=== PATIENT | female | born 1985 | race Caucasian/White ===

== ENCOUNTER 2019-10-27 20:37 | Emergency (ER) | payer OTHER ==
[2019-10-27 21:13] LABS: BASOPHILS % (AUTO) 0.4 %; EOSINOPHILS # (AUTO) 0.1 10^3/uL (0.0-0.7); EOSINOPHILS % (AUTO) 1.4 %; LYMPHOCYTES # (AUTO) 3.5 10^3/uL (1.5-3.5); LYMPHOCYTES % (AUTO) 38.6 %; MEAN CORPUSCULAR HEMOGLOBIN 30.1 pg (27.0-31.0); MEAN CORPUSCULAR HGB CONC 33.7 g/dL (32.0-36.0); MEAN CORPUSCULAR VOLUME 89.4 fL (81.0-99.0); MEAN PLATELET VOLUME 9.8 fL (7.9-10.8); MONOCYTES # (AUTO) 0.7 10^3/uL (0.0-1.0); MONOCYTES % (AUTO) 7.3 %; NEUTROPHILS # (AUTO) 4.8 10^3/uL (1.5-6.6); NEUTROPHILS % (AUTO) 52.1 %; PLT - PLATELET COUNT 295 10^3/uL (130-450); RED BLOOD COUNT 4.32 10^6/uL (4.20-5.40); RED CELL DISTRIBUTION WIDTH 12.6 % (12.0-15.0); WHITE BLOOD COUNT 9.2 x10^3/uL (4.8-10.8)
[2019-10-27 21:22] LABS: ALBUMIN 4.4 g/dL (3.2-5.5); ALBUMIN/GLOBULIN RATIO 1.4 (1.0-2.2); BILIRUBIN,TOTAL 0.6 mg/dL (0.2-1.0); CALCIUM 9.7 mg/dL (8.5-10.3); CREATININE 0.7 mg/dL (0.4-1.0); TOTAL PROTEIN 7.5 g/dL (6.7-8.2)
[2019-10-27 21:26] LABS: BILIRUBIN,URINE NEGATIVE (NEGATIVE); GLUCOSE, URINE (UA) NEGATIVE (NEGATIVE); KETONES,URINE (UA) NEGATIVE (NEGATIVE); LEUKOCYTE ESTERASE, URINE NEGATIVE (NEGATIVE); NITRITE,URINE NEGATIVE (NEGATIVE); OCCULT BLOOD,URINE NEGATIVE (NEGATIVE); PROTEIN,URINE NEGATIVE (NEGATIVE); UROBILINOGEN,URINE 0.2 (NORMAL) E.U./dL (NORMAL)
[2019-10-27 21:28] LABS: CLARITY,URINE N (CLEAR); HCG UR QUAL NEGATIVE
--- NOTE | 2019-10-27 21:53 | ED Physician Documentation ---
PD HPI CHEST PAIN - Stated complaint Stated Complaint: CP/SOA - Chief complaint Chief Complaint: Cardiac - History obtained from History obtained from: Patient, Family - History of Present Illness Timing - onset: How many months ago (3) Timing - onset during: Rest Timing - duration: Months (3) Timing - details: Gradual onset, Still present, Waxing and waning Quality: Sharp, Pain Location: Right chest Radiation: Neck Improved by: Rest, Other (some improvement with ibuprofen) Worsened by: Exertion, Inspiration, Movement, Palpation, Position Associated symptoms: Shortness of air, Feeling faint / dizzy. No: Diaphoresis, Nausea, General Weakness, Palpitations, Cough Similar symptoms before: Has not had sx before Recently seen: Clinic - Additional information Additional information: 34-year-old female who has been dealing with some pain in her neck and upper back since a miscarriage in July has developed some pain in her anterior chest that is made it difficult for her to breathe and she is having some dyspnea on exertion. She and her are trying to get and she has recently ovulated she thinks 2 days ago and she is concerned that any medications might cause a problem.The patient has had physical therapy and massage and acupuncture for her neck and back pain and all of this has been without significant improvement. She is here in the emergency department tonight because of concerns with her chest pain. She does indicate that she did have some sobbing when she had her miscarriage and that she has had this pain in her chest for some time as well not as bad as it as it has been over the past week. She has had a chest x-ray done at an urgent care and she has been in to see her primary care doctor as well. She found some relief with some Flexeril.She did not find relief with Naprosyn she did find some relief with ibuprofen. Review of Systems Constitutional: denies: Fever, Chills, Myalgias Eyes: denies: Decreased vision Ears: denies: Ear pain Nose: denies: Rhinorrhea / runny nose, Congestion Throat: denies: Sore throat Cardiac: reports: Chest pain / pressure. denies: Palpitations, Pedal edema, Calf pain Respiratory: reports: Dyspnea. denies: Cough, Hemoptysis, Wheezing GI: denies: Abdominal Pain, Nausea, Vomiting : reports: Frequency. denies: Dysuria Skin: denies: Rash Musculoskeletal: reports: Neck pain, Back pain. denies: Extremity pain, Joint pain, Extremity swelling Neurologic: denies: Generalized weakness, Focal weakness, Numbness PD PAST MEDICAL HISTORY - Present Medications Home Medications: Ambulatory Orders Medication Instructions Recorded Confirmed Cyclobenzaprine [Flexeril] 10 mg PO TID PRN #20 tablet 10/27/19 Oxycodone HCl/Acetaminophen 1 - 2 each PO Q6H PRN #14 tablet 10/27/19 [Percocet 5-325 mg Tablet] - Allergies Allergies/Adverse Reactions: Allergies Allergy/AdvReac Type Severity Reaction Status Date / Time No Known Drug Allergies Allergy Verified 10/27/19 20:51 PD ED PE NORMAL - Vitals Vital signs reviewed: Yes (tachycardic and hypertensive) - General General: Alert and oriented X 3, Well developed/nourished, Other (The patient is anxious ) - HEENT HEENT: Atraumatic, PERRL, EOMI - Neck Neck: Supple, no meningeal sign, No bony TTP, Other (There is tenderness to the trapezius bilaterally worse on the right ) - Cardiac Cardiac: RRR, No murmur - Respiratory Respiratory: No respiratory distress, Clear bilaterally, Other (There is tenderness to the chest wall anteriorly along the sternum especially on the right and extends into the chest wall superiorly. ) - Abdomen Abdomen: Soft, Non tender, Non distended, No organomegaly - Back Back: No CVA TTP, No spinal TTP - Derm Derm: Normal color, Warm and dry, No rash - Extremities Extremities: No deformity, No edema - Neuro Neuro: Alert and oriented X 3, geriatric case manager 2-12 intact, No motor deficit, No sensory deficit, Normal speech Eye Opening: Spontaneous Motor: Obeys Commands Verbal: Oriented GCS Score: 15 - Psych Psych: Normal affect, Other (mood is anxious. ) Results - Vitals Vitals: Vital Signs - 24 hr 10/27/19 10/27/19 10/28/19 20:40 21:22 00:07 Temperature 36.5 C Heart Rate 113 H 97 91 Respiratory 14 17 28 H Rate Blood Pressure 145/95 H 159/119 H 133/122 H O2 Saturation 100 100 100 10/28/19 00:24 Temperature Heart Rate 98 Respiratory 24 Rate Blood Pressure 144/98 H O2 Saturation 99 Oxygen O2 Source Room air - EKG (time done) 2050 Rate: Rate (enter#) (117) Rhythm: Sinus tachycardia [place]: LAD QRS: Low voltage Ischemia: Normal ST segments Compare to prior EKG: Old EKG unavailable Computer interpretation: Agree with computer - Labs Labs: Laboratory Tests 10/27/19 10/27/19 10/27/19 20:45 21:05 21:05 WBC 9.2 RBC 4.32 Hgb 13.0 Hct 38.6 MCV 89.4 MCH 30.1 MCHC 33.7 RDW 12.6 Plt Count 295 MPV 9.8 Neut # (Auto) 4.8 Lymph # (Auto) 3.5 Glynn # (Auto) 0.7 Eos # (Auto) 0.1 Baso # (Auto) 0.0 Absolute Nucleated RBC 0.00 Nucleated RBC % 0.0 D-Dimer 342.2 H Sodium Potassium Chloride Carbon Dioxide Anion Gap BUN Creatinine Estimated GFR (MDRD) Glucose Calcium Total Bilirubin AST ALT Alkaline Phosphatase Troponin I High Sens Total Protein Albumin Globulin Albumin/Globulin Ratio Lipase Urine Color YELLOW Urine Clarity N Urine pH 7.0 Ur Specific [place] 1.020 Urine Protein NEGATIVE Urine Glucose (UA) NEGATIVE Urine Ketones NEGATIVE Urine Occult Blood NEGATIVE Urine Nitrite NEGATIVE Urine Bilirubin NEGATIVE Urine Urobilinogen 0.2 (NORMAL) Ur Leukocyte Esterase NEGATIVE Ur Microscopic Review NOT INDICATED Urine Culture Comments NOT INDICATED Urine HCG, Qual NEGATIVE 10/27/19 10/27/19 21:05 21:05 WBC RBC Hgb Hct MCV MCH MCHC RDW Plt Count MPV Neut # (Auto) Lymph # (Auto) Glynn # (Auto) Eos # (Auto) Baso # (Auto) Absolute Nucleated RBC Nucleated RBC % D-Dimer Sodium 141 Potassium 3.4 L Chloride 106 Carbon Dioxide 25 Anion Gap 10.0 BUN 13 Creatinine 0.7 Estimated GFR (MDRD) 95 Glucose 103 H Calcium 9.7 Total Bilirubin 0.6 AST 18 ALT 19 Alkaline Phosphatase 39 L Troponin I High Sens 2.6 Total Protein 7.5 Albumin 4.4 Globulin 3.1 Albumin/Globulin Ratio 1.4 Lipase 44 Urine Color Urine Clarity Urine pH Ur Specific [place] Urine Protein Urine Glucose (UA) Urine Ketones Urine Occult Blood Urine Nitrite Urine Bilirubin Urine Urobilinogen Ur Leukocyte Esterase Ur Microscopic Review Urine Culture Comments Urine HCG, Qual - Rads (name of study) CT angio chest Radiology: Prelim report reviewed (Impression: No pulmonary embolism or other acute findings.), EMP read indepedently, See rad report Procedures - IVC sono (time) 2465 Bedside IVC sono: IVC measures (cm) (1.19), IVC collapsed c insp (cm) (complete), Dehydration (est 1 liter deficit) PD MEDICAL DECISION MAKING - ED course Complexity details: reviewed results, re-evaluated patient, considered differential, d/w patient, d/w family ED course: 34-year-old female with chest and neck pain for several months has worsening of costochondritis over the past week. She is quite anxious and worried about current and she is currently in a window of opportunity for diagnostics and treatment and I did try to reassure the patient this would be reasonable. The patient was tachycardic and complaining of chest pain pleuritic in nature and exertional dyspnea. My first concern was for pulmonary embolism and we were able to demonstrate conclusively that there is no evidence of pulmonary embolism. There is no pathology inside the chest. She does have costochondritis and palpation of her chest wall reproduces the symptoms she is having. I recommended to her dexamethasone and Toradol and she refused the Toradol with some concern about the possibility of being . She discussed possibility of terminating the . I found these discussions probably premature but not entirely unreasonable.I did attempt to reassure the patient multiple times and she is still concerned about autoimmune disease or other etiology for her symptoms. The patient was mildly dehydrated on interrogation the inferior vena cava and she was administered a liter of saline as well as the dexamethasone. We will place her on a short course of narcotic pain reliever and cyclobenzaprine. Departure - Departure Disposition: 01 Home, Self Care Clinical Impression: Costochondritis, acute Condition: Stable Instructions: ED Chest Pain Costochondritis Follow-Up: Your, doctor [Other] Prescriptions: Cyclobenzaprine [Flexeril] 10 mg PO TID PRN #20 tablet PRN Reason: Spasms Oxycodone HCl/Acetaminophen [Percocet 5-325 mg Tablet] 1 - 2 each PO Q6H PRN #14 tablet PRN Reason: pain Discharge Date/Time: 10/28/19 00:24
[2019-10-27] MEDS ORDERED: IOVERSOL 320 100 ML VIAL IVP ONE ×2 (22:02→22:38)
[2019-10-27] MEDS ORDERED: SODIUM CHLORIDE 0.9% 1,000 ML IV STA (22:43)
[2019-10-27] MEDS ORDERED: KETOROLAC 30 MG/ML VIAL IVP STA (23:01)
[2019-10-27] MEDS ORDERED: DEXAMETHASONE 10 MG/ML VIAL IVP STA (23:01)
[2019-10-27] MEDS ORDERED: oxyCODONE/ACET 5/325 Prepack 4 PO STA (23:47)
[2019-10-28 00:25] VITALS: BP 144/98
--- NOTE | 2019-10-28 09:50 | CT Report ---
PROCEDURE: ANGIO CHEST W/WO INDICATIONS: R sided chest pain, short of breath, elevated d-dimer CONTRAST: IV CONTRAST: Optiray 320 ml: 100 PO CONTRAST: *NO PO CONTRAST TECHNIQUE: After the administration of intravenous contrast, 2 mm thick sections acquired from the pulmonary api jody to the posterior costophrenic angles. 3-dimensional maximum intensity projection (MIP) coronal a nd sagittal reformats were then acquired through the thorax. For radiation dose reduction, the follow ing was used: automated exposure control, adjustment of mA and/or kV according to patient size. COMPARISON: None FINDINGS: Image quality: Excellent. Pulmonary arteries: Pulmonary arteries are normal in size, and demonstrate no intraluminal filling d efects to suggest central pulmonary embolism. Lungs and pleura: Lungs are clear. No pleural effusions or pneumothorax. Central and peripheral ai rways are patent. Mediastinum: Heart size is normal, without pericardial effusion. No mediastinal or hilar adenopathy . Thoracic aorta is normal in caliber and enhancement. Esophagus is normal in caliber, without hiat al hernia. Bones and chest wall: No suspicious bony lesions. Ribs and thoracic spine appear intact throughout. The thyroid is normal. No axillary or supraclavicular adenopathy. Abdomen: Visualized upper abdominal solid organs appear normal in the early arterial phase of enhanc ement. IMPRESSION: Negative for pulmonary embolism. No imaging explanation is found for the patient's presenting symptoms. Note: No significant discrepancy from the preliminary report. Reviewed by: Augustine Baker MD on 10/28/2019 8:48 AM ZULEMA Approved by: Augustine Baker MD on 10/28/2019 8:48 AM ZULEMA Station ID: [id number]
== END 2019-10-28 00:24 | disposition home or self-care (01) ==
LOC: ED 20:37
DX: M94.0 Chondrocostal junction syndrome [Tietze] (principal); E86.0 Dehydration; R06.09 Other forms of dyspnea; R03.0 Elevated blood-pressure reading, without diagnosis of hypertension; R00.0 Tachycardia, unspecified
CPT/HCPCS: 71275; 80053; 81003; 81025; 83690; 84484; 85025; 85379; 86769; 93005; 96361; 96374; 99284; Q9967; 81001; 87086